=== PATIENT | female | born 1950 | race Caucasian/White ===

== ENCOUNTER → 2020-12-28 | Emergency (ER) | payer OTHER ==
[~2020-12-28] VITALS: Ht 149.9 cm; Wt 77.1 kg
[~2020-12-28] MED LIST: HYZAAR 100-12.1 EACH
== END | disposition home or self-care (01) ==
LOC: ER 12:31
DX: H11.32 Conjunctival hemorrhage, left eye (principal)

== ENCOUNTER 2021-04-30 10:37 | Outpatient (CLI) | payer OTHER | END 2021-04-30 10:46 | disposition home or self-care (01) | LOC: LAB 10:37 | DX: R10.2 Pelvic and perineal pain (principal); M81.0 Age-related osteoporosis without current pathological fracture; N30.00 Acute cystitis without hematuria; E11.9 Type 2 diabetes mellitus without complications; E78.2 Mixed hyperlipidemia; N95.1 Menopausal and female climacteric states; K62.5 Hemorrhage of anus and rectum ==

== ENCOUNTER → 2021-07-16 13:29 | Outpatient (CLI) | payer OTHER | END | disposition home or self-care (01) | LOC: EDBD 13:29 → NUCLEAR 13:29 | PROVIDERS: ATTEND Obstetrics & Gynecology Gynecology | DX: M89.9 Disorder of bone, unspecified (principal); M81.0 Age-related osteoporosis without current pathological fracture ==

== ENCOUNTER → 2021-07-16 | Outpatient (CLI) | payer OTHER | END | disposition home or self-care (01) | LOC: LAB 14:58 | PROVIDERS: ATTEND Obstetrics & Gynecology Gynecology | DX: M81.0 Age-related osteoporosis without current pathological fracture (principal); R10.2 Pelvic and perineal pain; M30.0 Polyarteritis nodosa; E11.9 Type 2 diabetes mellitus without complications; E78.2 Mixed hyperlipidemia; N95.1 Menopausal and female climacteric states; K62.5 Hemorrhage of anus and rectum ==

== ENCOUNTER 2022-04-06 11:27 | Outpatient (CLI) | payer OTHER | END 2022-04-06 11:28 | disposition home or self-care (01) | LOC: LAB 11:27 | PROVIDERS: ATTEND Obstetrics & Gynecology Gynecology | DX: I10 Essential (primary) hypertension (principal); H81.10 Benign paroxysmal vertigo, unspecified ear; M17.0 Bilateral primary osteoarthritis of knee; E66.9 Obesity, unspecified; Z12.11 Encounter for screening for malignant neoplasm of colon ==

== ENCOUNTER 2022-04-06 13:16 | Outpatient (CLI) | payer OTHER | END 2022-04-06 13:20 | disposition home or self-care (01) | LOC: MAMO-SONO 13:16 | PROVIDERS: ATTEND Internal Medicine | DX: Z12.31 Encounter for screening mammogram for malignant neoplasm of breast (principal); N63.0 Unspecified lump in unspecified breast ==

== ENCOUNTER 2022-04-23 11:29 | Outpatient (CLI) | payer OTHER | END 2022-04-23 11:50 | disposition home or self-care (01) | LOC: LAB 11:29 | PROVIDERS: ATTEND Internal Medicine | DX: D64.9 Anemia, unspecified (principal); E55.9 Vitamin D deficiency, unspecified; I10 Essential (primary) hypertension; H81.10 Benign paroxysmal vertigo, unspecified ear; M17.0 Bilateral primary osteoarthritis of knee; E86.9 Volume depletion, unspecified; Z12.11 Encounter for screening for malignant neoplasm of colon ==

== ENCOUNTER 2022-12-03 09:38 | Outpatient (CLI) | payer OTHER | END 2022-12-03 09:39 | disposition home or self-care (01) | LOC: LAB 09:38 | DX: C19 Malignant neoplasm of rectosigmoid junction (principal); Z12.11 Encounter for screening for malignant neoplasm of colon; R10.2 Pelvic and perineal pain; N30.01 Acute cystitis with hematuria; N30.00 Acute cystitis without hematuria; E11.9 Type 2 diabetes mellitus without complications; E78.5 Hyperlipidemia, unspecified; N95.1 Menopausal and female climacteric states; K62.5 Hemorrhage of anus and rectum ==

== ENCOUNTER 2022-12-03 10:12 | Outpatient (CLI) | payer OTHER | END 2022-12-03 10:23 | disposition home or self-care (01) | LOC: SONOGRAMA 10:12 | PROVIDERS: ATTEND Obstetrics & Gynecology Gynecology | DX: N64.59 Other signs and symptoms in breast (principal); R10.9 Unspecified abdominal pain; R10.2 Pelvic and perineal pain ==

== ENCOUNTER → 2022-12-18 | Outpatient (CLI) | payer OTHER | END | disposition home or self-care (01) | LOC: RAD 14:36 | PROVIDERS: ATTEND Obstetrics & Gynecology Gynecology | DX: M17.0 Bilateral primary osteoarthritis of knee (principal) ==

== ENCOUNTER 2023-01-06 12:33 | Outpatient (CLI) | payer OTHER | END 2023-01-06 12:40 | disposition home or self-care (01) | LOC: RAD 12:33 | PROVIDERS: ATTEND Chiropractor | DX: M99.01 Segmental and somatic dysfunction of cervical region (principal); M99.02 Segmental and somatic dysfunction of thoracic region; M99.03 Segmental and somatic dysfunction of lumbar region ==

== ENCOUNTER 2023-05-04 10:26 | Outpatient (CLI) | payer OTHER ==
[2023-05-04 11:51] LABS: HEMATOCRIT 33.8 % (36.0-45.00); HEMOGLOBIN 11.4 g/dL (12.0-15.00); MEAN CORPUSCULAR HEMOGLOBIN 31.9 pg (27.00-32.0); MEAN CORPUSCULAR HGB CONC 33.6 g/dl (32.0-36.0); PLATELET COUNT 203 K/uL (150-450); RED BLOOD COUNT 3.56 M/uL (4.00-6.00); RED CELL DISTRIBUTION WIDTH 13.1 % (11.5-14.5)
[2023-05-04 12:03] LABS: PH,URINE 5.5 (5.0-8.0); URINE APPEARANCE Cloudy; URINE BILIRRUBIN Negative (NEGATIVE); URINE BLOOD Negative; URINE COLOR Yellow; URINE GLUCOSE Negative (NEGATIVE); URINE LEUKOCYTE Negative; URINE NITRATE Negative; URINE PROTEIN >=1000 (NEGATIVE); URINE UROBILINOGEN 0.2 E.U./dl
[2023-05-04 12:08] LABS: URINE BACTERIA 2076.2 uL (0.0-1933); URINE EPITHELIAL CELLS 40.4 uL (0.0-38.8); URINE RBC 5.7 uL (0.0-20.8); URINE WBC 14.6 uL (0.0-23.2)
[2023-05-04 12:28] LABS: ALBUMIN 3.5 gm/dL (3.4-5.0); BILIRUBIN TOTAL 0.52 mg/dL (0.3-1.2); CALCIUM 8.9 mg/dL (8.5-10.1); CHOL HDL RATIO 4.6 (0-5.0); CREATININE SERUM 2.13 mg/dL (0.55-1.02); GFR 22.71; GLOBULINA 3.1 G/DL (2.4-3.5); POTASSIUM 5.11 mEq/L (3.5-5.1); TOTAL PROTEIN 6.6 gm/dL (6.4-8.2)
[2023-05-04 13:09] LABS: T4 FREE 0.96 NG/ML (0.76-1.46); TSH 1.38 uIU/mL (0.358-3.74)
== END 2023-05-04 10:28 | disposition home or self-care (01) ==
LOC: LAB 10:26
PROVIDERS: ATTEND Obstetrics & Gynecology Gynecology
DX: R10.2 Pelvic and perineal pain (principal); N30.01 Acute cystitis with hematuria; N30.00 Acute cystitis without hematuria; E11.9 Type 2 diabetes mellitus without complications; E05.91 Thyrotoxicosis, unspecified with thyrotoxic crisis or storm; E03.9 Hypothyroidism, unspecified; E78.2 Mixed hyperlipidemia; Z12.11 Encounter for screening for malignant neoplasm of colon

== ENCOUNTER 2024-04-25 09:45 | Emergency (ER) | payer OTHER ==
[~2024-04-25] VITALS: Ht 149.9 cm; Wt 65.3 kg
[2024-04-25 09:58] VITALS: BP 147/83; O2SAT 99
[2024-04-25 10:47] LABS: HEMATOCRIT 28.7 % (36.0-45.00); HEMOGLOBIN 9.8 g/dL (12.0-15.00); MEAN CELL VOLUME 95.2 fL (80.00-100.00); MEAN CORPUSCULAR HEMOGLOBIN 32.4 pg (27.00-32.0); PLATELET COUNT 201 K/uL (150-450); RED BLOOD COUNT 3.02 M/uL (4.00-6.00); RED CELL DISTRIBUTION WIDTH 12.3 % (11.5-14.5)
[2024-04-25 12:04] LABS: ALBUMIN 3.7 gm/dL (3.4-5.0); BILIRUBIN TOTAL 0.56 mg/dL (0.3-1.2); CREATININE SERUM 2.7 mg/dL (0.55-1.02); GFR 17.23; GLOBULINA 2.9 G/DL (2.4-3.5); POTASSIUM 5.47 mEq/L (3.5-5.1); TOTAL PROTEIN 6.6 gm/dL (6.4-8.2)
== END 2024-04-25 12:59 | disposition home or self-care (01) ==
LOC: ER 09:47
PROVIDERS: General Practice
DX: D63.8 Anemia in other chronic diseases classified elsewhere (principal); I12.9 Hypertensive chronic kidney disease with stage 1 through stage 4 chronic kidney disease, or unspecified chronic kidney disease; N18.9 Chronic kidney disease, unspecified; Z88.2 Allergy status to sulfonamides; Z88.0 Allergy status to penicillin; Z91.041 Radiographic dye allergy status

== ENCOUNTER 2024-06-05 15:31 | Outpatient (CLI) | payer OTHER ==
[2024-06-05 17:21] LABS: % SATURACION 18.2 % (15-50); FERRITIN 187.6 NG/ML (8-252)
[2024-06-06 09:22] LABS: FOLIC ACID > 20.00 ng/ml (4.78-20)
[2024-06-07 10:05] LABS: CA 125 13.3 U/mL (0.0-38.1)
[2024-06-07 14:04] LABS: ERYTHROPOIETIN 7.8 mIU/mL (2.6-18.5)
[2024-06-07 16:08] LABS: hgb a 97.5 % (96.4-98.8); hgb a2 2.5 % (1.8-3.2); hgb f 0 % (0.0-2.0); hgb s 0 % (0.0)
== END 2024-06-05 15:46 | disposition home or self-care (01) ==
LOC: LAB 15:31
PROVIDERS: ATTEND Internal Medicine Hematology & Oncology
DX: D50.8 Other iron deficiency anemias (principal); D63.8 Anemia in other chronic diseases classified elsewhere; D55.0 Anemia due to glucose-6-phosphate dehydrogenase [G6PD] deficiency; D51.1 Vitamin B12 deficiency anemia due to selective vitamin B12 malabsorption with proteinuria; D51.0 Vitamin B12 deficiency anemia due to intrinsic factor deficiency; D63.1 Anemia in chronic kidney disease; C56.9 Malignant neoplasm of unspecified ovary; R97.8 Other abnormal tumor markers; R97.1 Elevated cancer antigen 125 [CA 125]; R97.0 Elevated carcinoembryonic antigen [CEA]; D51.3 Other dietary vitamin B12 deficiency anemia; N18.4 Chronic kidney disease, stage 4 (severe); I10 Essential (primary) hypertension; I12.9 Hypertensive chronic kidney disease with stage 1 through stage 4 chronic kidney disease, or unspecified chronic kidney disease